=== PATIENT | male | born 1965 | race Caucasian/White ===

== ENCOUNTER 2017-02-11 09:23 | Day surgery (SDC) | payer OTHER ==
[~2017-02-11 09:23] MED LIST: Lactated Ringers 1,000 ML IV SCH
[2017-02-11] MEDS ORDERED: Lactated Ringers 1,000 ML IV SCH (10:00)
[2017-02-11] MEDS ORDERED: Propofol 200 MG/20 ML SDV ONE (10:31)
[2017-02-11] MEDS ORDERED: fentaNYL 100 MCG/2 ML SDV ONE (10:31)
[2017-02-11] MEDS ORDERED: Midazolam 1 MG/ML 2 ML SDV ONE (10:31)
[2017-02-11 12:04] VITALS: BP 108/74
--- NOTE | 2017-02-12 07:22 | OR ---
DATE OF PROCEDURE: 02/11/2017 PREOPERATIVE DIAGNOSIS: Colon cancer screening. POSTOPERATIVE DIAGNOSIS: Unremarkable colonoscopy. PROCEDURE: Colonoscopy to the cecum. ANESTHESIA: IV anesthesia with monitored anesthesia care. INDICATION: This 51-year-old white male is referred for a colonoscopy for colon cancer screening. He has never had a colonoscopic exam. I counseled him for the procedure including risks and alternatives and he gave his informed consent to proceed. DESCRIPTION OF PROCEDURE: The patient was placed in the left lateral decubitus position. IV anesthesia was administered by the Anesthesia Service. Time-out was held. A rectal exam was performed, which was unremarkable. The flexible video Olympus colonoscope was introduced through his anus, up his rectum, and out his colon all way to the cecum. Once the cecum was reached, the scope was slowly withdrawn examining the mucosa throughout. No mucosal abnormalities were noted. The scope was retroflexed in the rectum with the distal rectum appearing unremarkable except for some minor hemorrhoidal tissue. The scope was straightened and removed. He tolerated the procedure well. Deepak Calix MD /[id number]
== END 2017-02-11 12:30 | disposition home or self-care (01) ==
LOC: JP.SDS 09:23
PROVIDERS: ATTEND Surgery
DX: Z12.11 Encounter for screening for malignant neoplasm of colon (principal); I10 Essential (primary) hypertension
CPT/HCPCS: 45378; J2250; J2704; J3010; J7120

== ENCOUNTER 2025-08-11 14:28 | Emergency (ER) | payer OTHER ==
[2025-08-11 17:06] LABS: BASOPHILS PERCENT AUTO 0.3 % (0.1-1.3); EOSINOPHILS ABSOLUTE AUTO 0.05 K/uL (0.00-0.40); EOSINOPHILS PERCENT AUTO 0.8 % (0.0-5.4); IMMATURE GRAN PERCENT AUTO 0.3 % (0.0-0.7); LYMPHOCYTES ABSOLUTE AUTO 1.06 K/uL (0.8-3.3); LYMPHOCYTES PERCENT AUTO 16.3 % (11.4-47.7); MONOCYTES ABSOLUTE AUTO 0.38 K/uL (0.20-0.90); MONOCYTES PERCENT AUTO 5.8 % (3.3-12.6); NEUTROPHILS ABSOLUTE AUTO 4.97 K/uL (1.0-7.6); NEUTROPHILS PERCENT AUTO 76.5 % (40.0-78.1); PLATELET COUNT,PLT 220 K/uL (130-375); RED BLOOD CELL COUNT 4.90 M/uL (4.14-5.76); WHITE BLOOD CELL COUNT,WBC 6.5 K/uL (3.2-11.0)
[2025-08-11 17:07] LABS: BASOPHILS ABSOLUTE AUTO 0.02 K/uL (0.00-0.10); IMMATURE GRAN ABSOLUTE AUTO 0.02 K/uL (0.00-0.23)
[2025-08-11 17:30] LABS: A/G RATIO 1.1 (1.2-2.2); ALANINE AMINOTRANSFERASE,ALT 24 U/L (12-78); ASPARTATE AMNIOTRANSFERASE,AST 19 U/L (15-37); BILIRUBIN TOTAL 0.4 mg/dL (0.2-1.0); BLOOD UREA NITROGEN,BUN 16 mg/dL (7-18); CARBON DIOXIDE,CO2 29 mmol/L (21-32); CHLORIDE,CL 105 mmol/L (100-108); CREATININE 0.7 mg/dL (0.8-1.3); EST CRCL DRUG DOSING (CG) 97.62 mL/min; ESTIMATED GFR 105 mL/min (>60); GLUCOSE RANDOM 94 mg/dL (74-106); POTASSIUM,K 4.5 mmol/L (3.6-5.2); PROTEIN TOTAL,TP 7.3 g/dL (6.4-8.2); SODIUM,NA 139 mmol/L (140-148); TROPONIN I HIGH SENSITIVITY 6.4 pg/mL (<=60.3)
[2025-08-11 17:32] VITALS: BP 147/89; PULSE 50
== END 2025-08-11 18:02 | disposition home or self-care (01) ==
LOC: JP.ED 14:28
DX: R07.89 Other chest pain (principal); I25.2 Old myocardial infarction; I10 Essential (primary) hypertension; F17.200 Nicotine dependence, unspecified, uncomplicated; Z86.16 Personal history of COVID-19
CPT/HCPCS: 36415; 80053; 84484; 85025; 93010; 99283; 99285